=== PATIENT | female | born 1945 | race Caucasian/White ===

== ENCOUNTER → 2019-09-10 14:02 | Outpatient (BNVA) | payer MEDICARE, SELFPAY | PROVIDERS: Family Provider Family Medicine; PCP Family Medicine; Referring Provider Orthopaedic Surgery; Visit Provider Psychiatry & Neurology Neurology | DX: G56.11 Other lesions of median nerve, right upper limb (principal); W19.XXXA Unspecified fall, initial encounter; Y93.9 Activity, unspecified | CPT/HCPCS: 95886; 95908 ==

== ENCOUNTER 2020-06-09 08:11 | Outpatient (CLI) | payer MEDICARE, SELFPAY ==
--- NOTE | 2020-06-09 08:32 | FL_ITS ---
WS: [id number] ESOPHAGRAM WITH FLUOROSCOPY HISTORY: DYSPHAGIA COMPARISON: None available. FLUOROSCOPY TIME: 1.1 minutes. Head Up Operator radiograph: Normal lateral C-spine. 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 Less than 50% narrowing of the esophageal lumen. No mucosal abnormalities. Pat ient was able to swallow the barium tablet without difficulty. Gastroesophageal reflux: None. Hiatal hernia: Minimal reducible small hiatal hernia. FL/FL barium swallow [id number] IMPRESSION: 1. Moderate cricopharyngeal spasm did not delay in swallowing of the barium ta blet. 2. No high-grade strictures or mucosal abnormalities.
== END 2020-06-09 08:12 | disposition home or self-care (01) ==
PROVIDERS: Family Provider Family Medicine; PCP Family Medicine; Visit Provider Family Medicine
DX: R13.10 Dysphagia, unspecified (principal)
CPT/HCPCS: 74220

== ENCOUNTER 2020-07-20 12:57 | Outpatient (CLI) | payer MEDICARE, SELFPAY ==
--- NOTE | 2020-07-20 13:14 | MM_ITS ---
WS: [id number] BILATERAL DIGITAL SCREENING MAMMOGRAPHY WITH CAD CLINICAL INFORMATION: SCREENING HISTORY: Screening mammogram. No current complaints. COMPARISON: [id number] TECHNIQUE: Bilateral CC and MLO views. FINDINGS: Scattered fibroglandular densities bilaterally. No suspicious focal mass, asymmetry, calcifications, or architectural distortion. No evidence of malignancy. Vascular and lucent centered calcifications. MM/[place] [id number] IMPRESSION: BI-RADS: 2-Benign FOLLOW UP: 1 Year Follow-up Recommend return to annual screening mammography.
--- NOTE | 2020-07-20 13:54 | XR_ITS ---
WS: [id number] DEXA (DUAL ENERGY X-RAY ABSORPTIOMETRY) Bone mineral density was performed using a [employer] machine. HISTORY: POST MENOPAUSAL COMPARISON: None available. Lumbar spine BMD (L1-L4): 1.001 g/cm2 T score: -1.5 Z score: 0.7 Total hip BMD: Left: 0.767 g/cm2. T score: -1.9 Z score: 0.0 Right: 0.743 g/cm2. T score: -2.1 Z score: -0.2 10 year probability of a major osteoporotic fracture is 23%. XR/XR DEXA axial skeleton* [id number] IMPRESSION: OSTEOPENIA based upon the WHO classification for females.
== END 2020-07-20 12:58 | disposition home or self-care (01) ==
LOC: RADSHAW 13:00
PROVIDERS: Family Provider Family Medicine; PCP Family Medicine; Visit Provider Family Medicine
DX: Z12.31 Encounter for screening mammogram for malignant neoplasm of breast (principal); Z78.0 Asymptomatic menopausal state; M85.89 Other specified disorders of bone density and structure, multiple sites
CPT/HCPCS: 77067; 77080

== ENCOUNTER 2021-07-21 08:29 | Outpatient (CLI) | payer MEDICARE, OTHER, SELFPAY ==
--- NOTE | 2021-07-21 08:38 | MM_ITS ---
WS: [id number] Bilateral screening digital mammogram, 07/21/2021 Clinical Data: SCREENING Comparison: 07/20/2020, 12/23/2016. Findings: The breast parenchymal pattern shows fibroglandular tissue. No spiculated masses or clustered calcifi cations are seen. There are no secondary signs of carcinoma. MM/[place] [id number] Impression: 1. Negative bilateral mammogram unchanged. 2. Recommend annual screening mammograms. BIRADS: 1-Negative FOLLOW UP: 1 Year Follow-up The CAD bakery products checker was used.
== END 2021-07-21 08:30 | disposition home or self-care (01) ==
LOC: RADSHAW 08:37
PROVIDERS: PCP Family Medicine; Visit Provider Nurse Practitioner Family
DX: Z12.31 Encounter for screening mammogram for malignant neoplasm of breast (principal)
CPT/HCPCS: 77067

== ENCOUNTER 2022-07-22 12:15 | Outpatient (CLI) | payer MEDICARE, SELFPAY ==
--- NOTE | 2022-07-22 12:22 | XR_ITS ---
WS: [id number] DEXA (DUAL ENERGY X-RAY ABSORPTIOMETRY) Bone mineral density was performed using a [employer] machine. HISTORY: POSTMENOPAUSAL COMPARISON: 07/20/2020 Lumbar spine BMD (L1-L4): 1.049 g/cm2 T score: -1.1 Z score: 1.1 Total hip BMD: Left: 0.689 g/cm2. T score: -2.5 Z score: -0.5 Right: 0.665 g/cm2. T score: -2.7 Z score: -0.7 10 year probability of a major osteoporotic fracture is 55.9%. Compared to the prior study from 07/20/2020. Lumbar spine bone mineral density has increased by 4.8%. Bilateral hips bone mineral density has decreased by 10.3%. XR/XR DEXA axial skeleton* [id number] IMPRESSION: OSTEOPOROSIS based upon the WHO classification for females. Patient is at significant increased risk for fracture. Significant decrease in bone mineral density within the hips since the prior st udy and significant increase in bone mineral density within the lumbar spine si nce the prior study.
== END 2022-07-22 12:16 | disposition home or self-care (01) ==
LOC: RAD 12:17
PROVIDERS: PCP Family Medicine; Visit Provider Nurse Practitioner Family
DX: Z78.0 Asymptomatic menopausal state (principal); M81.0 Age-related osteoporosis without current pathological fracture
CPT/HCPCS: 77080

== ENCOUNTER 2023-01-04 13:09 | Outpatient (CLI) | payer MEDICARE, SELFPAY ==
--- NOTE | 2023-01-04 13:28 | MM_ITS ---
WS: [id number] BILATERAL 3D TOMOSYNTHESIS DIGITAL SCREENING MAMMOGRAPHY WITH CAD CLINICAL INFORMATION: SCREENING HISTORY: Screening mammogram. No current complaints. COMPARISON: 2020 TECHNIQUE: Bilateral CC and MLO views. FINDINGS: Scattered fibroglandular densities bilaterally. No suspicious focal mass, asymmetry, calcifications, or architectural distortion. No evidence of malignancy. Vascular calcification. MM/[place] [id number] IMPRESSION: BI-RADS: 2-Benign FOLLOW UP: 1 Year Follow-up Recommend return to annual screening mammography.
== END 2023-01-04 13:10 | disposition home or self-care (01) ==
PROVIDERS: PCP Family Medicine; Visit Provider Physician Assistant
DX: Z12.31 Encounter for screening mammogram for malignant neoplasm of breast (principal)
CPT/HCPCS: 77063; 77067

== ENCOUNTER 2024-06-04 13:05 | Outpatient (CLI) | payer MEDICARE, SELFPAY ==
--- NOTE | 2024-06-04 13:10 | XR_ITS ---
WS: [id number] SCREENING DEXA SCAN [employer] CLINICAL INFORMATION: POSTMENOPAUSAL COMPARISON: 2021 FINDINGS: The L1-L4 bone mineral density measures 1.058 g/cm2. This corresponds to a T score score of -1.0 and Z score of 1.2. Left femoral neck bone mineral density measures 0.731 g/cm2. This corresponds to a T score of -2.2 an d Z score of -0.1. Right femoral neck bone mineral density measures 0.736 g/cm2. This corresponds to a T score -2.2of an d Z score of 0.0. Mean femoral neck bone mineral density measures 0.734 g/cm2. This corresponds to a T score of -2.2 an d Z score of 0.0. XR/XR DEXA axial skeleton* [id number] IMPRESSION: Osteopenia lumbar spine at the lower end of the range. Osteopenia femoral necks . Patient's FRAX calculated 10 year probability for major osteoporotic fracture i s 47.1% and osteoporotic hip fracture is 34.3%. Bone mineral density lumbar spine increased 0.9%. Bone mineral density femoral necks increased 8.4%
== END 2024-06-04 13:06 | disposition home or self-care (01) ==
PROVIDERS: PCP Family Medicine; Visit Provider Physician Assistant
DX: Z13.820 Encounter for screening for osteoporosis (principal); Z78.0 Asymptomatic menopausal state; M85.80 Other specified disorders of bone density and structure, unspecified site
CPT/HCPCS: 77080

== ENCOUNTER → 2025-06-10 15:21 | Outpatient (BNVA) | payer MEDICARE, SELFPAY | PROVIDERS: PCP Family Medicine; Visit Provider Physician Assistant | DX: S52.591A Other fractures of lower end of right radius, initial encounter for closed fracture (principal); W19.XXXA Unspecified fall, initial encounter; Z46.89 Encounter for fitting and adjustment of other specified devices | CPT/HCPCS: 73110 ==

== ENCOUNTER 2025-06-10 16:17 | Outpatient (CLI) | payer MEDICARE, SELFPAY | END 2025-06-10 16:18 | disposition home or self-care (01) | LOC: SPT 16:18 | PROVIDERS: PCP Family Medicine; Visit Provider Physician Assistant | DX: Z46.89 Encounter for fitting and adjustment of other specified devices (principal); S52.591D Other fractures of lower end of right radius, subsequent encounter for closed fracture with routine healing; X58.XXXD Exposure to other specified factors, subsequent encounter | CPT/HCPCS: 99204; L3982 ==

== ENCOUNTER → 2025-06-19 10:08 | Day surgery (SDC) | payer MEDICARE, SELFPAY ==
[2025-06-19] VITALS (10 sets, daily range): BP systolic 127–154; BP diastolic 65–79; PULSE 70–76; RESP 15–20; TEMP 36.3–36.7; O2SAT 90–95; BMI 23.2
--- NOTE | 2025-06-19 10:44 | ECG_ITS ---
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
[2025-06-19] MEDS: acetaminophen 1,000 MG/100 ML PIGGYBACK 400 MG IV (11:04)
--- NOTE | 2025-06-19 11:44 | ANES.PREANE2 ---
Pre-Anesthetic Assessment Height/Weight: Height 1.55 m Weight 55.792 kg Temp Pulse Resp BP Pulse Ox O2 Del Method 97.9 F 72 18 137/75 95 Room Air 06/19/25 10:54 06/19/25 10:54 06/19/25 10:54 06/19/25 10:54 06/19/25 10:54 06/19/25 10:57 Operation Date: 06/19/25 11:50 Proposed Procedures p RIGHT ORIF Distal Radius(Right) - Piotr Srinivasan, DO Familial anesthetic complications: none Was Beta Chase taken within 24 hours: N/A Was Clonidine taken within 24 hours: N/A Last intake: Intake Last Liquid Date 06/18/25 Last Liquid Time 16:00 Last Solid Date 06/19/25 Last Solid Time 16:00 Social No alcohol and No tobacco Exam alert, oriented x 3, clear to auscultation bilaterally and regular rate & rhythm Airway Mallampati: Class III Dentition: full CV/HEM Arrythmia and Hypertension Anesthetic Plan ASA status: 2 Anesthesia: General and Regional (specify below) Risk of > 500 ml blood loss (7ml/kg in children): No Medications/Allergies Home Medications ?Medication ?Instructions ?Recorded ?Confirmed ?Last Taken ?Type magnesium oxide 400 mg PO DAILY 09/02/19 06/18/25 06/15/25 History spironolactone 25 mg tablet 12.5 mg PO DAILY 09/02/19 06/18/25 06/18/25 History docusate sodium 100 mg capsule 100 mg PO BID 09/05/19 06/18/25 06/17/25 History (Dulcolax Stool Softener (docusate)) L.acidophilus-B.animalis-B.bifidum-B.infantis 1 cap PO DAILY 09/04/20 06/18/25 06/15/25 History 5 billion cell capsule (Probiotic Digestive System Support) calcium carbonate (Antacid 650 mg PO DAILY 09/04/20 06/18/25 06/15/25 History (calcium carbonate)) cholecalciferol (vitamin D3) 125 125 mcg PO DAILY 09/04/20 06/18/25 06/15/25 History mcg (5,000 unit) capsule escitalopram oxalate 5 mg/5 mL 5 mg PO DAILY 09/04/20 06/18/25 06/17/25 History oral solution yaxdcgnl-biro-ddxj 8 mg-folic 400 1 tab PO DAILY 09/04/20 06/18/25 06/15/25 History mcg-K 50 mcg-lutein 300 mcg tablet (Multivitamin Women 50 Plus) metoprolol tartrate 50 mg tablet 50 mg PO .COMPLEX #180 tabs 01/20/22 06/18/25 06/19/25 Rx hydrocodone 5 mg-acetaminophen 325 1 tab PO Q6H PRN pain 5 days #20 06/10/25 06/18/25 Unknown Rx mg tablet tabs right volar fast form #1 ea 06/10/25 06/10/25 Unknown Rx ondansetron 4 mg disintegrating 4 mg PO Q8H PRN nausea and 06/13/25 06/18/25 06/17/25 Rx tablet vomiting 7 days #21 tabs Allergies Allergy/AdvReac Type Severity Reaction Status Date / Time hydrocodone Allergy ADR-Vomitin Verified 06/19/25 10:24 g Current Medications Generic Name Dose Route Start Last Admin Trade Name Freq PRN Reason Stop Dose Admin Sodium Chloride 1,000 mls @ 30 mls/hr 06/19/25 10:15 06/19/25 11:03 Sodium Chloride 0.9% IV 06/20/25 10:14 30 mls/hr .Q24H COLE Administration PFS Anesthesia Medical History (Updated 06/10/25 @ 16:04 by TAVON Goodrich) Palpitations Trigger finger IBS (irritable bowel syndrome) more constipation Osteoporosis Colon polyp cancerous--- has screens every 2-3 years GERD (gastroesophageal reflux disease) Left carpal tunnel syndrome Anxiety BP (high blood pressure) Intermittent palpitations Surgical History History of cholecystectomy History of carpal tunnel surgery Bilateral H/O left wrist surgery [facility] [place] History of hysterectomy 1996: EMILIANO with BSO @ [facility] [place], Dr. Echevarria. Family History Mother Hypertension Cancer pancreatic Sister Hypertension Father CAD (coronary artery disease) Cancer colon cancer Social History Smoking and tobacco/nicotine status: never used tobacco/nicotine Alcohol intake: never Substance/Drug Use: never Household members: spouse Marital status: Female Reproductive History Para: 1 Spontaneous abortions: Yes (1) Anesthesia Procedures Nerve Block Nerve Block 1: Main Anesthesia: general anesthesia Time Out Performed: Yes Consent: requested by attending/covering physician, from patient, from other, risks and benefits reviewed and patient agrees to proceed Nerve block location: axillary (R) Anesthesia monitors applied: pulse oximetry, EKG, BP cuff and oxygen Nerve block position: supine Anesthetic Used: ropivicaine 0.5% (20 ml) and with decadron (4 mg) Ultrasound used to: recognize landmarks and visualize and ID brachial plexus Nerve Stimulator Used?: No Interscalene/Femoral BLK: 2 stimuplex 22 g needle used for position and inplane approach, visualize local anesthetic spread and no vascular puncture identified Injection: neg aspiration of heme (aspiration of heme with needle manipultion, needle removed flushed and further aspirations negative before injection) Patient Tolerated Procedure: well Complications: none
--- NOTE | 2025-06-19 11:45 | PC.NURSE ---
1135: Robb and animal science instructor student Dru performed RIGHT axial block. Using ultrasound guidance 20 ml of ropivicaine injected without incident. Patient tolerated well
--- NOTE | 2025-06-19 12:15 | W.PM.OPSUD ---
Surgery/Procedure H&P Update DATE OF PROCEDURE: June 19, 2025 DATE H&P PERFORMED: 06/10/25 H&P UPDATE INFORMATION: I have reviewed H&P completed within last 30 days, I have examined patient prior to procedure and No changes to prior documentation PREOP DIAGNOSIS: Right distal radius fracture displaced angulated PRIMARY INDICATION FOR PROCEDURE: Right distal radius fracture displaced angulated PLANNED PROCEDURE: Operation Date: 06/19/25 11:50 Proposed Procedures p RIGHT ORIF Distal Radius(Right) - Piotr Mattson DO
--- NOTE | 2025-06-19 14:06 | P.BOP_ITS ---
Date of Procedure: [June 19, 2025] Surgeon: [Dr. Mattson DO] Microstrategy Reports Developer(s): [Wilbur Mattson PA-C] Procedure(s) performed: [Right distal radius open reduction internal fixation] Findings of the procedure(s): [Right displaced radial fracture. Procedure went well and as planned.] Estimated blood loss: [10 mL] Specimen(s) removed: [N/A] Post-operative diagnosis: [Right displaced radial fracture]
--- NOTE | 2025-06-19 14:17 | P.PCN_ITS ---
PACU note Narrative: Patient is a 79-year-old female that just underwent a right distal radius ORIF. Patient transferred to PACU in stable condition. Pain is well controlled. Dressing on hand is dry and in place. Patient's fingers are warm and well- perfused. Patient can wiggle fingers. normal cap refill under 2 seconds. Patient has normal elbow range of motion. Unable to assess sensation due to residual localized anesthetic. Exam: awake Disposition: discharged
--- NOTE | 2025-06-19 15:40 | ANE.PACU2 ---
Inpatient post-anesthesia follow up: Airway intact: Yes Vital signs: Temperature 97.4 F Pulse Rate 72 Respiratory Rate 17 Blood Pressure 146/68 Pulse Oximetry 95 Oxygen Delivery Me thod Room Air Oxygen Flow Rate Fraction of Inspir ed Oxygen Hydration adequate: Yes Nausea and vomiting: No Pain level: 1 Mental status: Baseline
--- NOTE | 2025-06-19 16:10 | P.OP_ITS ---
Operative Report Date of procedure: June 19, 2025 Surgeon: Piotr Mattson DO Discovery Manager: Wilbur Mattson PA-C: PA was necessary for assistance in this case with hand positioning to execute the procedure, assistance with fracture reduction and fixation retraction and protection of neurovascular structures as well as to assist with wound closure and dressing/splint application. Procedure: Preop Diagnosis ? Right?distal?radius fracture ? Procedure: Post-op?diagnosis: Same, 2 part extra-articular Procedure done: Right?distal?radius?open reduction internal fixation, 2-part extra-articular Implants: ?Arthrex Right 3-hole narrow volar locking plate Combination of locking and nonlocking screws 2.7 mm?distal Combination of locking and nonlocking screws 3.5 mm proximal Surgeon: Piotr aMttson DO Anesthesia: General and nerve Block (Regional) Estimated blood loss: 10 mL Tourniquet time: 39 minutes IV fluids: 500mL Complications: None Findings: See?operative report narrative Condition: stable Disposition: same day Brief History: Patient is a 79-year-old female who presented to my office for a extra-articular Right?distal?radius fracture.? Patient has significant comminution and shortening as well as dorsal angulation patient active and at this point time through shared decision making patient like to proceed with a Right?distal?radius ORIF.? We had a detailed discussion in the office about nonoperative and?operative intervention.? At this point time I feel through s hared decision? best?option would be?open reduction internal fixation she is active with her hands and already has a considerable deformity?? as result through shared decision making patient would like to proceed with ORIF Right?distal?radius fracture.? Detail the risk benefits complication alternatives to treatment?option.? Understanding risk for surgery patient elects to proceed with surgical intervention.? All questions been answered at this time. Procedure: Patient seen and evaluated in the preoperative holding area.? Consent reviewed and signed with patient.? Correct extremities were marked and consent was reviewed and signed.? Patient was seen and evaluated by anesthesia department.? Underwent regional anesthesia. Once cleared for surgery pt was taken back to the?operative suite.? Patient was then transported into the?operative suite and kept on the OR gurney, all bony prominences well-padded patient was appropriate secured to bed in supine position.? An armboard was applied to the Right upper extremity.? The Right upper extremity had a nonsterile tourniquet applied.? Patient subsequently was then prepped and draped in standard orthopedic fashion she underwent anesthesia per the anesthesia department.? A final timeout was performed.? Patient received appropriate preoperative antibiotics. Esmarch was used exsanguinate the Right upper extremity and tourniquet was insufflated to 250 mmHg. A standard modified FCR volar approach was performed to the Right?distal?radius.? Sharp scalpel incision through skin and subcutaneous tissue.? I then switched to Littler dissection scissors identify the FCR tendon releases out of the sheath both proximally and?distally mobilized the tendon ulnarly and then subsequently incised the floor of the FCR tendon sheath with care to just incise the floor.? I then bluntly sweep the FPL tendon muscle belly ulnarly and placed blunt self-retaining retractor.? At this point time I direct visualization of the pronator quadratus which was incised in standard L fashion off the?radial and?distal border in the?distal?radius and fracture site was scraped clean of interposed muscle belly.? I then identified the 2 part extra-articular?distal?radius fracture.? This was subsequently?opened above and freed of interposing muscle belly as well as periosteum and fracture hematoma.? I did have to utilize my [place] which was placed through the fracture pattern and disengage the fracture and performed manual manipulation and anatomic reduction of the?distal?radius fracture.? ?Once satisfied with reduction and had appropriate anatomic reduction of the volar cortex.? This was confirmed with mini C arm in multiple orthogonal imaging.? At this point time? I selected a Arthrex anatomic?distal?radius plate utilizing a narrow 3-hole plate which would have appropriate spread?distally.? This was then placed up to the?distal?radius while maintaining my reduction, pins were placed?distally and proximally to confirm appropriate placement of the plate along the?distal?radius.? Minor adjustments were made and once I was satisfied I then subsequently drilled a bicortical 3.5 screw proximally in the oblong hole to allow for appropriate sliding of the?distal?radius plate appropriately to perfect position on the?distal?radius.? This had excellent fixation and purchase and brought the plate to bone.? While maintaining my reduction I then confirmed in multiple orthogonal imaging that my plate was in appropriate position.? Once satisfied with my position I then subsequently placed the peek targeting guide on the?distal locking screws with Arthrex.? The locking guide was then subsequently loaded and I subsequently drilled and placed a fully threaded cortical screw to compress the plate to bone for the?distal fracture fragment.? This was performed with plan to then remove this and placed a shorter locking screw had bicortical fixation with excellent purchase and appropriate reduction of my volar tilt and bringing plate to bone of the?distal fragment and plate.? Once I was satisfied with my plate position as well as reduction of the?distal?radius which was confirmed on AP oblique and lateral imaging I then subsequently drilled measured and placed 3 locking screws around this cortical screw.? Then I subsequently removed the cortical screw and placed a shorter locking screw that did not penetrate the dorsal cortex.?? This completed my?distal fixation.? I did utilize mini C arm to confirm appropriate placement of the screws these were all within the?distal?radius and no joint involvement within the?radiocarpal joint or the DRUJ.? These had appropriate subchondral support and maintenance of reduction and fixation of the?distal?radius fracture.? ?I then turned my attention proximally and then I screwed in the locking guides for my final to screws proximally these were then subsequently drilled measured and appropriate length locking screws were then placed proximally with excellent fixation and locking technology into the plate.? This completed my construct.? The peek guide was subsequently removed and final imaging of the Right?distal?radius?open reduction internal fixation was taken of AP lateral as well and is orthogonal imaging.? I then took a inclination view which showed my?radial styloid screw was out of the penetration of the joint.? All my?distal screws were appropriate length did not penetrate dorsal cortex and did not penetrate the joint.? This completed my fixation.? Smooth wrist range of motion was then noted with no evidence of clicking. Wrist was then taken through pronation supination and stressed the DRUJ which was found to be stable.? The wound was then thoroughly irrigated.? Tourniquet was then subsequently deflated.? Hemostasis satisfactory with bipolar electrocautery.? I then subsequ ently placed interrupted 3-0 Vicryl sutures for subcutaneous tissue and then subsequently placed a nylon the skin for closure.? Incision was then dressed with Xeroform 4 x 4's Kerlix cast padding and a volar Ortho-Glass splint was then applied with Elliot wrap and placed in a sling.? Disposition: Patient taken to PACU in stable condition recovering well receive appropriate discharge instructions as well as pain medication postoperatively.? Maintain splint until follow-up.? Nonweightbearing to?operative upper extremity We will follow-up with Dr. Mattson in the office in 2 weeks.? If any questions or concerns feel free to contact the office.
== END | disposition home or self-care (01) ==
PROVIDERS: PCP Family Medicine; Visit Provider Student in an Organized Health Care Education/Training Program
PROC: (CPT 25607; principal; 2025-06-19 11:50)
DX: S52.501A Unspecified fracture of the lower end of right radius, initial encounter for closed fracture (principal); W18.30XA Fall on same level, unspecified, initial encounter; I49.9 Cardiac arrhythmia, unspecified; I10 Essential (primary) hypertension; Z79.891 Long term (current) use of opiate analgesic; R00.2 Palpitations; K21.9 Gastro-esophageal reflux disease without esophagitis; F41.9 Anxiety disorder, unspecified
CPT/HCPCS: 25607; 73100; 76000; 93005; C1713; J0131; J1100; J2405; J2704; J2795; J3010; J7030

== ENCOUNTER 2025-06-21 05:00 | Outpatient (CLI) | payer MEDICARE, SELFPAY | END 2025-06-21 05:01 | LOC: SOT 07-14 10:01 | PROVIDERS: Visit Provider Physician Assistant | DX: Z46.89 Encounter for fitting and adjustment of other specified devices (principal); S52.501D Unspecified fracture of the lower end of right radius, subsequent encounter for closed fracture with routine healing; W17.89XD Other fall from one level to another, subsequent encounter | CPT/HCPCS: 97760; 99024; L3906 ==

== ENCOUNTER → 2025-07-02 08:20 | Outpatient (BNVA) | payer MEDICARE, SELFPAY | PROVIDERS: PCP Family Medicine; Visit Provider Physician Assistant | DX: Z98.890 Other specified postprocedural states (principal); Z87.81 Personal history of (healed) traumatic fracture | CPT/HCPCS: 73110 ==

== ENCOUNTER → 2025-07-16 09:09 | Outpatient (BNVA) | payer MEDICARE, SELFPAY | PROVIDERS: Visit Provider Physician Assistant | DX: Z98.890 Other specified postprocedural states (principal); Z87.81 Personal history of (healed) traumatic fracture | CPT/HCPCS: 73110; 99024 ==

== ENCOUNTER → 2025-07-30 10:23 | Outpatient (BNVA) | payer MEDICARE, SELFPAY | PROVIDERS: PCP Family Medicine; Visit Provider Physician Assistant | DX: Z98.890 Other specified postprocedural states (principal); Z46.89 Encounter for fitting and adjustment of other specified devices | CPT/HCPCS: 73110; 99024 ==

== ENCOUNTER 2025-07-30 11:40 | Outpatient (CLI) | payer MEDICARE, SELFPAY | END 2025-07-30 11:41 | disposition home or self-care (01) | LOC: SPT 11:40 | PROVIDERS: PCP Family Medicine; Visit Provider Physician Assistant | DX: Z47.89 Encounter for other orthopedic aftercare (principal); Z98.890 Other specified postprocedural states; Z87.81 Personal history of (healed) traumatic fracture; S52.501D Unspecified fracture of the lower end of right radius, subsequent encounter for closed fracture with routine healing; X58.XXXD Exposure to other specified factors, subsequent encounter | CPT/HCPCS: L3908 ==